=== PATIENT | female | born 1985 | race Two or more races ===

== ENCOUNTER 2024-11-07 13:30 | Inpatient (IN) | payer OTHER ==
[~2024-11-07] VITALS: Ht 162.6 cm; Wt 67.1 kg
[2024-11-16 01:50] VITALS: BP 111/70
[2024-11-16] MEDS ORDERED: PRENATABS RX T1 EACH PO (02:11)
[2024-11-16] MEDS ORDERED: LOVENOX60 MG/0.6 SUBCUTANEO (02:11)
[2024-11-16 02:48] LABS: BASO % 0.3 % (0.1-1.2); EOS # 0.06 (0.04-0.54); EOS % 0.4 % (0.7-7.0); LYMPH # 3.73 (1.18-3.74); LYMPH % 25.5 % (19.3-53.1); MEAN PLATELET VOLUME 11.50 fl (9.4-12.4); MONO # 0.99 (0.24-0.82); MONO % 6.8 % (4.7-12.5); NEUT # 9.61 (1.56-6.13); NEUT % 65.6 % (34.0-71.1); RED CELL DISTRIBUTION WIDTH 12.9 % (11.6-14.4)
[2024-11-16 03:04] LABS: INR 0.95
[2024-11-16 03:10] LABS: ALT/SGPT 15.0 U/L (12-78); AST/SGOT 13.0 U/L (15-37); BILIRUBIN TOTAL 0.3 mg/dL (0.3-1.2); BUN CREA RATIO 23.0 (7.0-25.0); CREATININE SERUM 0.82 mg/dL (0.55-1.02); GFR 78.02; GLOBULINA 3.9 G/DL (2.4-3.5); GLUCOSE FASTING 96.0 mg/dL (65-100); OSMOLALITY SERUM 282.0 MOSM/KG (275-295)
[2024-11-16] MEDS ORDERED: OXYTOCIN 10 UNITS/ML VIAL IV ONE (03:30)
[2024-11-16] MEDS ORDERED: ERYTHROMYCIN BASE OPHT 1GM EACH TUBE OP ONE (03:30)
[2024-11-16] MEDS ORDERED: CITRIC ACID/SODIUM CITRATE 30 ML BLIST.PACK PO SCH (03:45)
[2024-11-16] MEDS ORDERED: CEFAZOLIN SODIUM 1,000 MG VIAL IV SCH (03:45)
[2024-11-16] MEDS ORDERED: OXYTOCIN 1,000 ML IV ONE (04:00)
[2024-11-16] MEDS ORDERED: RINGERS SOLUTION,LACTATED 1,000 ML IV SCH (04:00)
[2024-11-16] MEDS ORDERED: MORPHINE SULFATE 4 MG/ML CARTRIDGE IV PRN (04:00)
[2024-11-16] MEDS ORDERED: KETOROLAC TROMETHAMINE 30 MG VIAL IV SCH (06:00)
[2024-11-16] MEDS ORDERED: ONDANSETRON HCL 2 MG/ML VIAL IV SCH (06:00)
[2024-11-16] MEDS ORDERED: ACETAMINOPHEN 500 MG GEL..CAP PO SCH (06:00)
[2024-11-16 06:19] VITALS: BP 108/58
[2024-11-16 08:44] VITALS: BP 125/70
[2024-11-16] MEDS ORDERED: GABAPENTIN 300 MG CAPSULE PO SCH (09:00)
[2024-11-16] MEDS ORDERED: DOCUSATE SODIUM 100MG CAP PO SCH (09:00)
[2024-11-16] MEDS ORDERED: SIMETHICONE 125 MG CAPSULE PO SCH (09:00)
[2024-11-16 14:47] VITALS: BP 124/86
[2024-11-16 18:16] LABS: BASO % 0.2 % (0.1-1.2); EOS # 0.01 (0.04-0.54); EOS % 0.1 % (0.7-7.0); LYMPH # 1.64 (1.18-3.74); LYMPH % 8.4 % (19.3-53.1); MEAN PLATELET VOLUME 11.70 fl (9.4-12.4); MONO # 1.52 (0.24-0.82); MONO % 7.8 % (4.7-12.5); NEUT # 16.14 (1.56-6.13); NEUT % 82.5 % (34.0-71.1); RED CELL DISTRIBUTION WIDTH 13.2 % (11.6-14.4)
[2024-11-17] VITALS: BP 108/67
[2024-11-17 05:00] VITALS: BP 98/57
[2024-11-17] MEDS ORDERED: KETOROLAC TROMETHAMINE 10 MG TABLET PO SCH (08:00)
[2024-11-17] MEDS ORDERED: OxyCODONE HCL 5 MG TABLET (ROXICODONE) PO PRN (08:00)
[2024-11-17 08:47] VITALS: BP 115/72
[2024-11-17] MEDS ORDERED: ENOXAPARIN SODIUM 60 MG/0.6 ML SYRINGE SUBCUTANEO SCH (09:00)
[2024-11-17 15:48] VITALS: BP 109/68
[2024-11-18] VITALS: BP 122/74
[2024-11-18 08:10] VITALS: BP 120/76
== END 2024-11-18 11:12 | disposition home or self-care (01) | DRG 788 ==
LOC: LDR 11-16 01:57 → OB/GYN 11-16 01:57
PROVIDERS: Obstetrics & Gynecology; ADMIT Obstetrics & Gynecology; ATTEND Obstetrics & Gynecology
PROC: 4A1HXCZ Monitoring of Products of Conception, Cardiac Rate, External Approach (ICD-10-PCS; 2024-11-16)
PROC: 10D00Z1 Extraction of Products of Conception, Low, Open Approach (ICD-10-PCS; principal; 2024-11-16 07:00)
DX: O82 Encounter for cesarean delivery without indication (principal); O62.1 Secondary uterine inertia; Z3A.39 39 weeks gestation of pregnancy; Z37.0 Single live birth